=== PATIENT | male | born 1995 | race Caucasian/White ===

== ENCOUNTER 2021-07-14 17:27 | Emergency (ER) | payer BC, SELFPAY ==
[2021-07-14] VITALS (10 sets, daily range): BP systolic 116–141; BP diastolic 62–71; PULSE 95–179; RESP 12–62; TEMP 37.1; O2SAT 98–100; BMI 19.3
[2021-07-14] MEDS: dilTIAZem 5 MG/ML SDV 25 MG IV (17:57)
--- NOTE | 2021-07-14 17:57 | DI.RAD.S_ITS ---
PROCEDURE: XR CHEST 1V INDICATIONS: chest TECHNIQUE: One view of the chest was acquired. COMPARISON: None. FINDINGS: Surgical changes and devices: None. Lungs and pleura: Lungs are clear. No pleural effusions or pneumothorax. Mediastinum: Mediastinal contours appear normal. Heart size is normal. Bones and chest wall: No suspicious bony lesions. Overlying soft tissues appear unremarkable. IMPRESSION: No evidence acute pulmonary process. Dictated by: Shai Nicholas M.D. on 07/14/2021 at 18:15 Approved by: Shai Nicholas M.D. on 07/14/2021 at 18:15
--- NOTE | 2021-07-14 18:01 | PC.NURSE ---
Addendum entered by Ivone Kirk R.N. 07/14/21 18:05: nausea and vomiting. Reports sharp pain in lungs that is constant and not with inspiration. Stated I hope this is a bad reaction and not something really bad. Original Note: Patient reports that he was smoking marijuana when he had sudden onset difficulty breathing. Upon arrival to room patient was pale, diaphoretic with heart rate at 174 bpm. Inserted 18 PIV, Dr Clinton to bedside with verbal order for 10mg IV diltiazem, performed vagal maneuver with a change to 140 bpm. RT at bedside, performed EKG and chest xray was taken. Patient is bouncing feet, denies
[2021-07-14 18:05] LABS: COVID19 -Nasal RAPID Negative (Negative)
[2021-07-14 18:06] LABS: Add Manual Diff / Slide Review NO; Basophils Absolute Auto 100 /uL (0-100); Basophils Percent Auto 0.6 % (0-2); Eosinophils Absolute Auto 100 /uL (0-450); Eosinophils Percent Auto 0.5 % (2-4); Hematocrit 39.1 % (41-53); INR 1.1 (0.9-1.3); Lymphocytes Absolute Auto 3900 /uL (1100-4500); Lymphocytes Percent Auto 35.6 % (25-40); Mean Corpuscular HGB Conc 35.9 % (30-36); Mean Corpuscular Hemoglobin 31.8 PG (26-34); Mean Corpuscular Volume 88.8 fL (80-100); Monocytes Absolute Auto 600 /uL (0-900); Monocytes Percent Auto 5.9 % (3-14); Neutrophils Absolute Auto 6300 /uL (1500-7000); Neutrophils Percent Auto 57.4 % (50-75); Platelet Count 302 X10^3/uL (150-400); Prothrombin Time 12.5 SECONDS (10.1-12.7); Red Cell Distribution Width 12.4 % (11.6-14.8)
[2021-07-14 18:08] LABS: PTT Partial Thromboplastin Tim 28 SECONDS (26.4-36.2)
[2021-07-14] MEDS: SODIUM CHLORIDE 0.9% 1,000 ML 1000 ML IV (18:08)
[2021-07-14 18:09] LABS: Blood Urea Nitrogen 15 mg/dL (9-20); Carbon Dioxide 20 mmol/L (22-32); Chloride 105 mmol/L (98-107); Creatine Kinase 113 U/L (55-170); Potassium 3.4 mmol/L (3.4-5.1); Sodium 141 mmol/L (137-145)
[2021-07-14 18:10] LABS: Alanine Aminotransferase 17 IU/L (<50); Albumin 4.8 g/dL (3.5-5.0); Albumin Globulin Ratio 1.5 (1.0-2.8); Alkaline Phosphatase 55 U/L (38-126); Aspartate Aminotransferase 30 IU/L (17-59); BUN Creatinine Ratio 12.6 (6-22); Bilirubin Total 1.8 mg/dL (0.2-1.3); D Dimer < 200 ng/mL (<230); Estimated Glomerular Filt Rate > 60 mL/min (>60); Globulin 3.2 g/dL (1.7-4.1); Glucose 165 mg/dL (70-100); HEMOLYSIS 17 (0-50); Lipase 90 U/L (23-300)
--- NOTE | 2021-07-14 18:11 | ED_ITS ---
HPI - SOB/Dyspnea General Chief Complaint: Shortness of Breath/Dyspnea Stated Complaint: stated feels like lungs are filling with liquid Time Seen by Provider: 07/14/21 17:57 Source: patient Mode of arrival: Ambulatory Limitations: no limitations History of Present Illness HPI Narrative: 25-year-old male nonsmoker but relatively frequent user THC presents with a sudden onset of burning chest pain shortness of breath and rapid heart rate. Just prior to his arrival he had smoked marijuana preroll from a local shop and immediately developed symptoms as stated. He states he has a burning in his lungs and pain is worse with deep breath. He denies any cough or significant shortness of breath, states only that it hurts to breathe. He has a rapid, pounding heart rate and is a little bit dizzy and anxious. He states he has had similar symptoms in the past when smoking marijuana. He denies other medical problems. He was fine prior to smoking. He denies any fever or chills. Related Data Home Medications Medication Instructions Recorded Confirmed . (No Home Medications) #0 08/02/09 02/12/19 Allergies Allergy/AdvReac Type Severity Reaction Status Date / Time No Known Drug Allergies Allergy Unverified 02/12/19 10:56 Review of Systems Review of Systems Narrative: GENERAL: See HPI HEENT: Denies sinus pain, ear pain, sore throat, difficulty swallowing, dizziness. RESPIRATORY: See HPI CARDIOVASCULAR: See HPI GASTROINTESTINAL: Denies nausea, vomiting, abdominal pain, diarrhea, constipation, melena. : Denies dysuria, frequency, incontinence, hematuria, urinary retention. MUSCULOSKELETAL: denies weakness, joint pain, or bony pain SKIN: Denies rash, skin lesions, or other NEUROLOGIC: Denies weakness, headache, numbness, change in speech, confusion, seizures, incoordination. PSYCHIATRIC: No concerning psychosocial issues. 12 point review of systems is negative except for those stated above Patient History Surgical History Anesthesia [place] teeth removed (~2016) Family History Grandfather History of heart disease Hypertension Lung cancer Grandmother Hypertension Grandfather Prostate cancer Grandmother Breast cancer Social History Smoking Status: Never smoker alcohol intake: current substance use type: does not use Smoking Status: Never smoker Substance Use Type: marijuana Exam Narrative Exam Narrative: GENERAL: [25 year old patient appears stated age. Well-developed patient, in mild distress. Anxious, redirectable and alert HEAD: Atraumatic. Normocephalic. EYES: Pupils equal round and reactive. Extraocular motions intact. No scleral icterus. No injection or drainage. ENT: Nose without bleeding, purulent drainage. Throat without erythema, tonsillar hypertrophy or exudate. Airway patent. NECK: Trachea midline. Non tender CARDIOVASCULAR: Tachycardic but regular rhythm without murmurs, gallops, or rubs. RESPIRATORY: Clear to auscultation. Breath sounds equal bilaterally. No wheezes, rales, or rhonchi. GASTROINTESTINAL: Abdomen soft, non-tender, nondistended. EXTREMITIES: No edema or joint tenderness. BACK: Nontender without deformity or crepitance. No flank tenderness. NEURO: AOx3. SKIN: No rash or erythema of visible areas Initial Vital Signs Initial Vital Signs: Vital Signs Temperature 98.7 F 07/14/21 17:36 Pulse Rate 179 H 07/14/21 17:36 Respiratory Rate 32 H 07/14/21 17:36 Blood Pressure 116/71 07/14/21 17:36 Pulse Oximetry 100 07/14/21 17:36 Course Orders Ordered: Discontinued Medications Sodium Chloride (Normal Saline 0.9%) 1,000 mls @ 1,000 mls/hr IV CONT EDWARDO Last Infusion: 07/14/21 20:29 Dose: 0 mls/hr Documented by: Admin: 07/14/21 18:08 Dose: 1,000 mls/hr Documented by: FRAN Ketorolac Tromethamine (Ketorolac 30 Mg/Ml Vial) 15 mg IV NOW ONE Stop: 07/14/21 18:12 Last Admin: 07/14/21 18:24 Dose: 15 mg Documented by: FRAN Lorazepam (Lorazepam 2 Mg/Ml Inj) 0.5 mg IV NOW ONE Stop: 07/14/21 18:12 Last Admin: 07/14/21 18:25 Dose: 0.5 mg Documented by: FRAN Reevaluation(s) Reevaluation #1: Patient had some slowing of heart rate with modified Valsalva maneuver, slowed to a rhythm that appeared more sinus than SVT. Vital Signs Vital signs: Vital Signs - 8 hr 07/14/21 17:36 07/14/21 17:42 07/14/21 17:57 Temperature 98.7 F Pulse Rate 179 H 163 H 174 H Respiratory Rate 32 H Blood Pressure 116/71 141/67 H Pulse Oximetry 100 99 07/14/21 18:00 07/14/21 18:30 07/14/21 19:00 Temperature Pulse Rate 145 H 125 H 113 H Respiratory Rate 62 H 23 20 Blood Pressure 132/63 135/70 131/67 Pulse Oximetry 99 99 100 MDM - SOB/Dyspnea Lab Data Result diagrams: 07/14/21 17:48 07/14/21 17:48 Labs: Lab Results 07/14/21 07/14/21 07/14/21 Range/Units 17:43 17:48 17:48 WBC 11.0 (4.5-11.0) X10^3/uL RBC 4.40 L (4.5-5.9) X10^6/uL Hgb 14.0 (13.5-17.5) g/dL Hct 39.1 L (41-53) % MCV 88.8 (80-100) fL MCH 31.8 (26-34) PG MCHC 35.9 (30-36) % RDW 12.4 (11.6-14.8) % Plt Count 302 (150-400) X10^3/uL Neut % (Auto) 57.4 (50-75) % Lymph % (Auto) 35.6 (25-40) % [place] % (Auto) 5.9 (3-14) % Eos % (Auto) 0.5 L (2-4) % Baso % (Auto) 0.6 (0-2) % Neut # (Auto) 6300 (6655-3780) /uL Lymph # (Auto) 3900 (9506-6796) /uL [place] # (Auto) 600 (0-900) /uL Eos # (Auto) 100 (0-450) /uL Baso # (Auto) 100 (0-100) /uL PT 12.5 (10.1-12.7) SECONDS INR 1.1 (0.9-1.3) APTT 28 (26.4-36.2) SECONDS D-Dimer < 200 (<230) ng/mL Sodium (137-145) mmol/L Potassium (3.4-5.1) mmol/L Chloride (98-107) mmol/L Carbon Dioxide (22-32) mmol/L BUN (9-20) mg/dL Creatinine (0.66-1.25) mg/dL Estimated GFR (>60) mL/min BUN/Creatinine Ratio (6-22) Glucose (70-100) mg/dL Calcium (8.4-10.2) mg/dL Total Bilirubin (0.2-1.3) mg/dL AST (17-59) IU/L ALT (<50) IU/L Alkaline Phosphatase (38-126) U/L Total Creatine Kinase (55-170) U/L CK-MB (CK-2) (<2.37) ng/mL CK-MB (CK-2) Rel Index (1.5-5.0) % Troponin I (0.01-0.034) ng/mL Total Protein (6.3-8.2) g/dL Albumin (3.5-5.0) g/dL Globulin (1.7-4.1) g/dL Albumin/Globulin Ratio (1.0-2.8) Lipase (23-300) U/L SARS-CoV-2 (PCR) Negative (Negative) 07/14/21 Range/Units 17:48 WBC (4.5-11.0) X10^3/uL RBC (4.5-5.9) X10^6/uL Hgb (13.5-17.5) g/dL Hct (41-53) % MCV (80-100) fL MCH (26-34) PG MCHC (30-36) % RDW (11.6-14.8) % Plt Count (150-400) X10^3/uL Neut % (Auto) (50-75) % Lymph % (Auto) (25-40) % [place] % (Auto) (3-14) % Eos % (Auto) (2-4) % Baso % (Auto) (0-2) % Neut # (Auto) (8778-4823) /uL Lymph # (Auto) (0013-8614) /uL [place] # (Auto) (0-900) /uL Eos # (Auto) (0-450) /uL Baso # (Auto) (0-100) /uL PT (10.1-12.7) SECONDS INR (0.9-1.3) APTT (26.4-36.2) SECONDS D-Dimer (<230) ng/mL Sodium 141 (137-145) mmol/L Potassium 3.4 (3.4-5.1) mmol/L Chloride 105 (98-107) mmol/L Carbon Dioxide 20 L (22-32) mmol/L BUN 15 (9-20) mg/dL Creatinine 1.19 (0.66-1.25) mg/dL Estimated GFR > 60 (>60) mL/min BUN/Creatinine Ratio 12.6 (6-22) Glucose 165 H (70-100) mg/dL Calcium 9.0 (8.4-10.2) mg/dL Total Bilirubin 1.8 H (0.2-1.3) mg/dL AST 30 (17-59) IU/L ALT 17 (<50) IU/L Alkaline Phosphatase 55 (38-126) U/L Total Creatine Kinase 113 (55-170) U/L CK-MB (CK-2) 0.32 (<2.37) ng/mL CK-MB (CK-2) Rel Index 0.3 L (1.5-5.0) % Troponin I < 0.012 (0.01-0.034) ng/mL Total Protein 8.0 (6.3-8.2) g/dL Albumin 4.8 (3.5-5.0) g/dL Globulin 3.2 (1.7-4.1) g/dL Albumin/Globulin Ratio 1.5 (1.0-2.8) Lipase 90 (23-300) U/L SARS-CoV-2 (PCR) (Negative) Point of Care Testing Glucose POC 152 Imaging Data Chest x-ray: Radiologist's Impression: [address] [address] XRay Report Signed Patient: Demetrius Nicole MR#: [id number] : 1995 Acct:[id number] Age/Sex: 25 / M Date of Service: 07/14/21 Loc: ED Accession Number: [id number] ?? Procedure: XR chest 1V Ordering Provider: Ida Clinton D.O. PROCEDURE:? XR CHEST 1V ? INDICATIONS:? chest ? TECHNIQUE:? One view of the chest was acquired.? ? COMPARISON:? None. ? FINDINGS:? ? Surgical changes and devices:? None.? ? Lungs and pleura:? Lungs are clear.? No pleural effusions or pneumothorax.? ? Mediastinum:? Mediastinal contours appear normal.? Heart size is normal.? ? Bones and chest wall:? No suspicious bony lesions.? Overlying soft tissues appear unremarkable.? ? IMPRESSION:? No evidence acute pulmonary process. ? ? ? Dictated by: Shai Nicholas M.D. on 07/14/2021 at 18:15 ? ? Approved by: Shai Nicholas M.D. on 07/14/2021 at 18:15 ? MDM Narrative Medical decision making narrative: Patient presents with sudden-onset burning lung pain high heart rate after smoking a cannabis pre roll. Initially he appears to possibly be in SVT and slow is a bit with modified Valsalva and Cardizem. He receives IV fluids, anti-inflammatories among others and has significant improvement over the next few hours. Heart rate slows into the 80s and 90s, work of breathing is improved the patient has no evidence of hypoxemia. Chest x-ray is unremarkable. Extensive return precautions discussed and questions answered to his apparent satisfaction Discharge Plan Departure Patient Disposition: Home Clinical Impression: Pneumonitis, Adverse effect of cannabis Activity Restrictions/Additional Instructions: *You have been diagnosed with [adverse reaction to inhaled cannabis and likely pneumonitis. As we discussed your history and physical exam are very reassuring as are labs, chest x-ray and EKGs. *What to do: *Please continue to take your regular medications as directed. [ ] New medication prescriptions sent to your pharmacy: [ ] [ ] New medication written as a paper prescription [x ] No new medications given *Please follow up with your primary care provider in 2-3 days, call for an appointment. Let them know you were seen in the Emergency Department and that we ask that you be seen in follow up. We will electronically transmit a record of today's note if your PCP is in our system *Given today's visit and your history it would seem reasonable to avoid smoking cannabis in the future. *Return to Emergency Department if you should have any new, worsening or concerning symptoms, such as [fever greater than 101 F, shaking chills, worsening pain, persistent vomiting or other bothersome symptoms] Prescriptions: No Action . (No Home Medications) Qty: 0 0RF Referrals: Windy Cronin MD [Primary Care Provider] -
[2021-07-14 18:21] LABS: Troponin I < 0.012 ng/mL (0.01-0.034)
[2021-07-14] MEDS: KETOROLAC 30 MG/ML VIAL 15 MG IV (18:24)
[2021-07-14 18:25] LABS: CKMB % Relative Index 0.3 % (1.5-5.0); Creatine Kinase MB 0.32 ng/mL (<2.37)
[2021-07-14] MEDS: LORazepam 2 MG/ML INJ 0.5 MG IV (18:25)
== END 2021-07-14 21:38 | disposition home or self-care (01) ==
PROVIDERS: Emergency Medicine; Emergency Provider Emergency Medicine; PCP Family Medicine
DX: J18.9 Pneumonia, unspecified organism (principal); R06.02 Shortness of breath; T40.715A Adverse effect of cannabis, initial encounter; R07.9 Chest pain, unspecified; Z20.822 Contact with and (suspected) exposure to COVID-19
CPT/HCPCS: 36415; 71045; 80053; 82550; 82553; 82962; 83690; 84484; 85025; 85379; 85610; 85730; 87635; 93005; 93010; 96361; 96374; 96375; 99284; 99291; C9803; J1885; J2060